=== PATIENT | female | born 1955 | race Caucasian/White ===

== ENCOUNTER → 2022-03-19 07:33 | Outpatient (CLI) | payer MEDICARE, OTHER, SELFPAY ==
--- NOTE | ~2022-03-19 | MM_ITS ---
EXAMINATION: MM diagnostic brian BI w dheeraj HISTORY: Six-month follow-up for probably benign right breast calcifications TECHNIQUE: Craniocaudal, mediolateral, and mediolateral oblique 3-D tomosynthesis images of the right breast were performed and synthetic 2-D images were generated. Magnification views of the right tyree st are also obtained. CAD analysis was submitted and interpreted. COMPARISON: 09/12/2021, 02/12/2021,02/04/2021, 12/18/2019 BREAST PARENCHYMAL COMPOSITION: There are scattered areas of fibroglandular density. FINDINGS: Right breast: There are lumpectomy changes in the upper outer quadrant of the right breast. Calcifica tions at the lumpectomy site appear to be dystrophic in appearance and are without significant change . No suspicious mass is identified. Left breast: There is no suspicious mass, calcification, or architectural distortion to suggest ildefonso gnancy. There has been no suspicious interval change. IMPRESSION: 1. Probably benign right breast calcifications. 2. Given one year of interval stability, recommend 12 month followup bilateral diagnostic mammogram. BI-RADS category 3, probably benign findings. Reviewed, dictated and finalized at location A.
== END ==
PROVIDERS: PCP Family Medicine
DX: C50.811 Malignant neoplasm of overlapping sites of right female breast (principal)
CPT/HCPCS: 77062; 77066; G0279